=== PATIENT | male | born 1990 | race Hispanic/Latino ===

== ENCOUNTER 2018-05-25 08:03 | Emergency (ER) | payer OTHER ==
[2018-05-25] MEDS ORDERED: FLUORESCEIN SODIUM 0.6 MG STRIP ONE ×2 (08:15→09:47)
[2018-05-25] MEDS ORDERED: ERYTHROMYCIN BASE 0.5% OPHTH OINT 1 GM TUBE ONE (08:49)
== END 2018-05-25 10:22 | disposition home or self-care (01) ==
LOC: EDH 08:03
DX: T15.01XA Foreign body in cornea, right eye, initial encounter (principal); X58.XXXA Exposure to other specified factors, initial encounter; Y93.89 Activity, other specified; Y92.89 Other specified places as the place of occurrence of the external cause; Y99.8 Other external cause status